=== PATIENT | female | born 1945 | race Caucasian/White ===

== ENCOUNTER → 2017-03-16 | Outpatient (CLI) | payer MEDICARE | LOC: MC.RAD 10:17 | DX: Z12.31 Encounter for screening mammogram for malignant neoplasm of breast (principal) ==

== ENCOUNTER → 2018-04-27 | Outpatient (CLI) | payer MEDICARE | LOC: MC.RAD 10:01 | DX: Z12.31 Encounter for screening mammogram for malignant neoplasm of breast (principal); Z98.890 Other specified postprocedural states ==

== ENCOUNTER 2018-10-25 10:00 | Outpatient (RCR) | payer MEDICARE | END 2018-11-03 15:09 | disposition home or self-care (01) | LOC: WSC 10:00 | DX: M54.41 Lumbago with sciatica, right side (principal) ==

== ENCOUNTER → 2018-11-07 | Outpatient (CLI) | payer MEDICARE | LOC: MHCPAIN 09:14 | DX: G89.29 Other chronic pain (principal); M47.817 Spondylosis without myelopathy or radiculopathy, lumbosacral region; M54.16 Radiculopathy, lumbar region; M53.3 Sacrococcygeal disorders, not elsewhere classified | CPT/HCPCS: G0463 ==

== ENCOUNTER → 2019-05-16 | Outpatient (CLI) | payer MEDICARE | LOC: MC.RAD 08:41 | DX: Z12.31 Encounter for screening mammogram for malignant neoplasm of breast (principal); Z98.890 Other specified postprocedural states; Z85.3 Personal history of malignant neoplasm of breast ==

== ENCOUNTER → 2020-05-21 | Outpatient (CLI) | payer MEDICARE | LOC: MC.RAD 08:58 | DX: Z12.31 Encounter for screening mammogram for malignant neoplasm of breast (principal); Z98.890 Other specified postprocedural states ==

== ENCOUNTER → 2021-08-12 | Outpatient (CLI) | payer MEDICARE | LOC: MC.RAD 09:10 | DX: Z12.31 Encounter for screening mammogram for malignant neoplasm of breast (principal); N64.89 Other specified disorders of breast ==

== ENCOUNTER → 2021-08-27 | Outpatient (CLI) | payer MEDICARE | LOC: MC.RAD 13:00 | DX: N63.12 Unspecified lump in the right breast, upper inner quadrant (principal); N64.89 Other specified disorders of breast ==

== ENCOUNTER 2022-05-22 10:19 | Day surgery (SDC) | payer MEDICARE ==
[~2022-05-22] VITALS: Ht 152.4 cm; Wt 57.8 kg
[~2022-05-22 10:19] MED LIST: CALTRATE-600 W600 MG PO; CENTRUM SILVER1 TAB PO; COZAAR 25MG25 MG/TAB PO; CURCUMIN95%; LEVAQUIN 5500 MG/TA1 PO; SYNTHROID0.05 MG/TA PO; THE MEDICINE SH1 POW PO; VITAMIN C500 MG PO
--- NOTE | 2022-05-22 11:17 | NUR ---
Initial visit; Patient and her son thanked Surgical Dental Assistant for offering prayer, encouragement and peace prior to her "Procedure" with Dr. Zhao. Surgical Dental Assistant assured patient she is in wonderful hands with our DrBryson and nurses and Surgical Dental Assistant will keep her in her prayers.
[2022-05-22 11:38] VITALS: BP 121/78; PULSE 103; TEMP 98.2
[2022-05-22 13:12] VITALS: BP 105/67; PULSE 93; TEMP 98.3
--- NOTE | 2022-05-22 13:12 | NUR ---
Patient arrives to [facility] for post-procedure recovery. She is lying in bed, alert and oriented. PIV to TKO. Monitoring is applied -VSS and WNL on room air. She is comfortable, denies any pain. Her drain site is covered with a clean, dry, intact dressing. Her family is at the bedside. Social work is contacted regarding assisting with obtaining supplies for her pleur-ex drain.
[2022-05-22 13:30] VITALS: BP 108/68; PULSE 92
--- NOTE | 2022-05-22 13:30 | NUR ---
VSS on room air. Remains pain free. Offered and receives juice, pudding, and crackers.
[2022-05-22 13:45] VITALS: BP 112/69; PULSE 91
--- NOTE | 2022-05-22 13:49 | NUR ---
Dr. Zhao is called on his cell phone regarding patient's pain of 5/10 at the catheter insertion site. A voicemail is left with callback information.
--- NOTE | 2022-05-22 14:02 | NUR ---
REPORT GIVEN OFF TO CLIF MARTINEZ AT THIS TIME AND SHE ASSUMES PATIENT CARE
[2022-05-22 14:30] VITALS: BP 117/68
--- NOTE | 2022-05-22 14:38 | NUR ---
1420 GENERAL ENGINEERTRESSA ASSISTING PT WITH SUPPLY ORDER 1433 IV DICONTINUED 1438 PT TO HOSPITAL ENTRANCE VIA WHEEL CHAIR FOR RIDE HOME WITH FAMILY IN [place].
--- NOTE | 2022-05-22 15:30 | NUR ---
YOLANDA faxed patients signed pluerx drain order faxed to DME agency. Contact made with agency that they will reach out to the patient and once they make contact, the agency will order the patients supplies. Patients son and daughter are at bedside. Patient is to return for drain changes as an outpatient with placing physician.
== END 2022-05-22 14:43 | disposition home or self-care (01) ==
LOC: SDCO 10:19
DX: C34.92 Malignant neoplasm of unspecified part of left bronchus or lung (principal); J91.0 Malignant pleural effusion; C85.90 Non-Hodgkin lymphoma, unspecified, unspecified site; Z85.3 Personal history of malignant neoplasm of breast
CPT/HCPCS: A7048; C1729; J2270; J2704; J7120